=== PATIENT | male | born 1985 | race Caucasian/White ===

== ENCOUNTER 2021-05-18 08:18 | Emergency (ER) | payer MEDICAID ==
[~2021-05-18] VITALS: Ht 162.6 cm; Wt 81.8 kg
[2021-05-18] MEDS ORDERED: ACETAMINOPHEN 325 MG TABLET PO ONE (08:45)
[2021-05-18 09:12] LABS: COVID AG,FIA SOURCE NASOPHARYNGEAL
[2021-05-18 09:48] VITALS: BP 142/84
== END 2021-05-18 10:19 | disposition home or self-care (01) ==
LOC: EMS 08:18
DX: U07.1 COVID-19 (principal); J02.9 Acute pharyngitis, unspecified; R05 Cough; F17.210 Nicotine dependence, cigarettes, uncomplicated
CPT/HCPCS: 87426; 99283; U0003